=== PATIENT | male | born 1985 | race Caucasian/White ===

== ENCOUNTER 2021-04-08 00:08 | Emergency (ER) | payer SELFPAY ==
[~2021-04-08] VITALS: Ht 170.2 cm; Wt 81.8 kg
[2021-04-08] MEDS ORDERED: VALTREX1 GM PO (01:13)
[2021-04-08 01:28] VITALS: BP 115/79; PULSE 70; TEMP 98
== END 2021-04-08 01:28 | disposition home or self-care (01) ==
LOC: COL.ER 00:08
DX: B02.9 Zoster without complications (principal); F17.210 Nicotine dependence, cigarettes, uncomplicated